=== PATIENT | male | born 1980 | race Two or more races ===

== ENCOUNTER 2017-08-18 06:38 | Day surgery (SDC) | payer OTHER ==
[2017-08-18] VITALS (13 sets, daily range): BP systolic 110–137; BP diastolic 59–86
[~2017-08-18] VITALS: Ht 177.8 cm; Wt 94.3 kg
[~2017-08-18 06:38] MED LIST: NKM; ceFAZolin 1gm in D5W 55ml IVPB SCH; celeBREX 200mg Cap **SURGERY PATIENTS ONLY ORAL SCH; oxyCONTIN 20mg tab ORAL SCH
--- NOTE | 2017-08-18 07:43 | Pre-Procedure Note/Attestation ---
Pre-Procedure Note/Attestation Complete Prior to Procedure Planned Procedure: left Procedure Narrative: knee arthroscopy, possible medial menisectomy, possible acl recontruction Indications for Procedure Pre-Operative Diagnosis: left knee meniscus tear, possible acl tear Attestation I attest that I discussed the nature of the procedure; its benefits; risks and complications; and alternatives (and the risks and benefits of such alternatives ), prior to the procedure, with the patient (or the patient's legal medical customer service representative). I attest that, if there was a reasonable possibility of needing a blood transfusion, the patient (or the patient's legal medical customer service representative) was given the [facility] standardized written summary, pursuant to the [place] Blood Safety Act ([place] Health and Safety Code # 1645, as amended). I attest that I re-evaluated the patient just prior to the surgery and that there has been no change in the patient's H&P, except as documented below: TRICIA MAURICE Aug 18, 2017 07:43
--- NOTE | 2017-08-18 07:43 | Operative Note - PDOC ---
Operative Note Operative Note Pre-op Diagnosis: left knee meniscus tear, possible acl tear Procedure: see op report Post-op Diagnosis: same as pre-op plus Operative Findings: consistent w/pre-op dx studies Anesthesia: regional Specimen: none Complications: none Condition: stable Estimated Blood Loss: none Implant(s) used?: Yes TRICIA MAURICE Aug 18, 2017 07:43
[2017-08-18] MEDS ORDERED: oxyCODONE HCL/Acetaminophen 5/325mg ORAL PRN (09:00)
[2017-08-18] MEDS ORDERED: fentaNYL 100 mcg/2 mL IV PRN (09:00)
[2017-08-18] MEDS ORDERED: HYDROcodone/Acetamin 7.5/325 tab ORAL PRN (09:00)
[2017-08-18] MEDS ORDERED: Atropine Inj 1mg/10ml Syr IV PRN (09:00)
[2017-08-18] MEDS ORDERED: Labetalol 5mg/ml 20ml vial IV PRN (09:00)
[2017-08-18] MEDS ORDERED: LORazepam Inj 2mg/ml 1ml IV PRN (09:00)
[2017-08-18] MEDS ORDERED: Ketorolac 30mg Inj IV PRN ×2 (09:00)
[2017-08-18] MEDS ORDERED: Hydromorphone 0.5mg/0.5ml inj IVP PRN (09:00)
[2017-08-18] MEDS ORDERED: LR 1000ml 1,000 ML IVLG SCH (09:00)
[2017-08-18] MEDS ORDERED: DiphenhydrAMINE 50mg/ml Inj IVP PRN (09:00)
[2017-08-18] MEDS ORDERED: Norco 5mg/325mg tab ORAL PRN ×2 (09:00→16:01)
[2017-08-18] MEDS ORDERED: Midazolam 2mg/2ml Inj IVP PRN (09:00)
--- NOTE | 2017-08-18 09:04 | Anethesia Preoperative Eval ---
Anesthesia Pre-op PMH/ROS General Date of Evaluation: Aug 18, 2017 Time of Evaluation: 09:43 Anesthesiologist: Chidi ASA Score: ASA 1 Mallampati Score Class I : Soft palate, uvula, fauces, pillars visible Class II: Soft palate, uvula, fauces visible Class III: Soft palate, base of uvula visible Class IV: Only hard plate visible Mallampati Classification: Class II Surgeon: Luis Diagnosis: L Knee Pain Surgical Procedure: L Knee Arthroscopy, ACL Repair Anesthesia History: none Family History: no anesthesia problems Allergies: Coded Allergies: No Known Allergies (Unverified , 08/18/17) Medications: see eMAR Anesthesia Pre-op Phys. Exam Physician Exam Last Vital Signs Date Time Temp Pulse Resp B/P (MAP) Pulse Ox O2 Delivery O2 Flow Rate FiO2 08/18/17 07:58 98.7 71 18 120/86 98 Room Air 98.7 Constitutional: NAD Neurologic: CN 2-12 intact Cardiovascular: RRR Respiratory: CTA Gastrointestinal: S/NT/ND Airway Exam Mallampati Score: Class II MO: full ROM: full Teeth: intact Anesthesia Pre-op A/P Risk Assessment & Plan Assessment: ASA 2 Plan: GA, Femoral/Adductor Block, BIS Status Change Before Surgery: No Pre-Antibiotics Dru Grams Ancef IV Given Within 1 Hr of Incision: Yes Time Given: 09:48 Gonzalo Martinez MD Aug 18, 2017 09:04
--- NOTE | 2017-08-18 09:05 | Immediate Post-Op Evaluation ---
Immediate Post-Op Evalulation Immediate Post-Op Evalulation Procedure: L Knee Arthroscopy, ACL Repa Date of Evaluation: Aug 18, 2017 Time of Evaluation: 13:22 IV Fluids: 2000 LR Blood Products: 0 Estimated Blood Loss: 50 Urinary Output: 0 Blood Pressure Systolic: 122 Blood Pressure Diastolic: 57 Pulse Rate: 93 Respiratory Rate: 16 O2 Sat by Pulse Oximetry: 99 Temperature (Fahrenheit): 98.6 Pain Score (1-10): 3 Nausea: No Vomiting: No Complications 0 Patient Status: awake, reacts, patent, extubated, none Hydration Status: adequate Dru Grams Ancef IV Given Within 1 Hr of Incision: Yes Gonzalo Martinez MD Aug 18, 2017 09:05
--- NOTE | 2017-08-18 09:05 | 48 Hour Post Anesthesia Eval ---
Post Anesthesia Evaluation Procedure: L Knee Arthroscopy, ACL Repa Date of Evaluation: Aug 18, 2017 Time of Evaluation: 15:32 Blood Pressure Systolic: 118 0: 62 Pulse Rate: 91 Respiratory Rate: 18 Temperature (Fahrenheit): 98.6 O2 Sat by Pulse Oximetry: 99 Airway: patent Nausea: No Vomiting: No Pain Intensity: 3 Hydration Status: adequate Cardiopulmonary Status: Stable Mental Status/LOC: patient returned to baseline Follow-up Care/Observations: 0 Post-Anesthesia Complications: 0 Follow-up care needed: ready to discharge Gonzalo Martinez MD Aug 18, 2017 09:05
[2017-08-18] MEDS ORDERED: Propofol 200mg/20ml IV ONE (09:07)
[2017-08-18] MEDS ORDERED: Dexamethasone 4mg/ml vial ONE (09:07)
[2017-08-18] MEDS ORDERED: Lidocaine 1% MPF 10mg/ml 5ml ONE (09:07)
[2017-08-18] MEDS ORDERED: Sodium Chloride 10ml vial INJ ONE (09:07)
[2017-08-18] MEDS ORDERED: Ropivacaine 5mg/ml Vial 30ml INJ ONE (09:10)
[2017-08-18] MEDS ORDERED: Lidocaine 1% 10mg/ml/Epi 0.005mg/ml 30ml vial INJ ONE (09:34)
[2017-08-18] MEDS ORDERED: Morphine Sulfate PF 0 ML ONE (09:34)
[2017-08-18] MEDS ORDERED: Bupivacaine 0.25% Inj 30ml INJ ONE (09:35)
[2017-08-18] MEDS ORDERED: LR 1000ml ONE (10:00)
[2017-08-18] MEDS ORDERED: NS Irrig 1000ml ONE (10:00)
[2017-08-18] MEDS ORDERED: NS Irrig 4000ml IRRIG ONE (10:00)
[2017-08-18] MEDS ORDERED: EPINEPHrine 1mg/1ml Amp ONE (10:19)
[2017-08-18] MEDS ORDERED: Kenalog-40 1ml Vial ONE (10:19)
[2017-08-18] MEDS ORDERED: fentaNYL 100 mcg/2 mL IV ONE ×2 (10:32→11:54)
[2017-08-18] MEDS ORDERED: Acetaminophen (Non formulary) 100 ML IV ONE (11:00)
[2017-08-18] MEDS ORDERED: Metoprolol 5mg/5ml Inj ONE (12:56)
[2017-08-18] MEDS ORDERED: D5 1/2NS 1,000 ML IV SCH (16:01)
[2017-08-18] MEDS ORDERED: Tylenol #3 tab (300mg/30mg) ORAL PRN (16:01)
--- NOTE | 2017-08-18 17:13 | Diagnostic Imaging Report ---
Indication: Pain, intraoperative Technique: Intraoperative images Comparison: none Findings: Intraoperative images demonstrate surgical tool's projected about the knee, surgical clips subsequently projected laterally Impression: Intraoperative imaging, as described
--- NOTE | 2017-08-18 18:00 | Operative Note - Dictated ---
DATE OF OPERATION: 08/18/2017 PREOPERATIVE DIAGNOSES: 1. Left knee medial meniscus tear. 2. Left knee ACL tear. POSTOPERATIVE DIAGNOSES: 1. Left knee medial meniscus tear. 2. Left knee ACL tear. PROCEDURE: 1. Left knee arthroscopic ACL reconstruction with tibialis anterior allograft. 2. Left knee medial meniscectomy. 3. Synovectomy, lateral and patellofemoral compartment. SURGEON: Dev Smith M.D. ANESTHESIA: Femoral with general. INDICATION FOR PROCEDURE: The patient is a pleasant gentleman, who has had pain in the left knee. He had MRI which showed meniscal tear and possible ACL tear. He failed conservative treatment and elected to undergo left knee arthroscopic ACL reconstruction/medial meniscectomy. Risks, limitations, expectations, and complications of procedure were discussed in detail. All questions were addressed. DESCRIPTION OF PROCEDURE: After informed consent was obtained, the patient was brought to the operating room and placed supine under femoral and general anesthesia. The patient's left leg was prepped and draped in sterile manner. Time-out was performed. Inferolateral stab incision was then made. Trocar was introduced into the knee joint. Systematic tour of the knee was performed. There was no significant chondral damage in the patellofemoral compartment. Medial compartment was entered. There seemed to be a bucket-handle \ tear through the anterior middle body, no chondral damage. Intercondylar notch was entered. There was complete destruction of the femoral footprint of the ACL. Lateral compartment was entered. There was some grade 1 chondral damage in the posterolateral aspect of the lateral compartment, but otherwise no obvious meniscal or chondral damage. At this point, attempt to fix the meniscus was performed. The ACL stump was debrided. Once this was completed, attention was turned towards the meniscal repair. Using inside-out technique, three Vicryl sutures were placed. A second medial incision was then made and the sutures were tacked down to the capsule. Once this was done, the camera was repositioned back into the knee joint that was repaired. Two of the sutures had pulled out. Given that the meniscus tear was somewhat chronic and it was very poor tissue, additional repair was not attempted. Partial meniscectomy was performed. Once that was done, the femoral and tibial tunnels were drilled. The tibialis anterior allograft then was prepared on the back table and then passed through tibial tunnel, intercondylar notch, and femoral condyle. Once that was done, tibial interference screw was placed. The knee was taken through full range of motion. There was no impingement on the graft. During the preparation of the femoral tunnel, the tip of the drill broke off. This went into the posterolateral aspect of the knee joint. Approximately, half an hour was used to lavage the knee in an attempt to dislodge the metallic point. Once that was not possible, fluoroscopy was brought in and showed that the metallic piece was stuck and stable, was not moving. We attempted to make a posterior incision to put the cannula through to look at the posterior capsule, however, at that point, the prominent swelling, and given the fact that the metallic component was not moving around and was down in the articulating surface, it was felt that further attempts would not be medically reasonable and if does cause problem in the future, addressed at that point. Therefore, instruments were removed. Portal sites were closed with #1 Vicryl suture, 2-0 Vicryl suture, and 3-0 Monocryl suture. Steri-Strips and dressing were applied. ESTIMATED BLOOD LOSS: None. COMPLICATIONS: Include a broken tip of the drill. IMPLANTS: Tibialis anterior allograft. Dev Smith M.D. DR: Nina JOB#: [id number] CC:
== END 2017-08-18 15:45 | disposition home or self-care (01) ==
LOC: SUR 06:38
DX: S83.242A Other tear of medial meniscus, current injury, left knee, initial encounter (principal); S83.512A Sprain of anterior cruciate ligament of left knee, initial encounter; X58.XXXA Exposure to other specified factors, initial encounter; Y93.9 Activity, unspecified; Y92.9 Unspecified place or not applicable
CPT/HCPCS: 29876; 29881; 29888; 73560; 76000; J0690; J1100; J2250; J2405; J2704; J2795; J3010; J3490; J7120